=== PATIENT | male | born 1990 | race Caucasian/White ===

== ENCOUNTER 2016-03-03 07:44 | Emergency (ER) | payer BC, OTHER ==
[2016-03-03] MEDS ORDERED: IBUPROFEN 800 MG TAB As Ordered ONE (08:12)
[2016-03-03] MEDS ORDERED: CLINDAMYCIN 150 MG CAP As Ordered ONE (08:12)
--- NOTE | 2016-03-03 08:22 | EDDOCDS ---
Nurse's Notes [facility] Name: Tha Valle Age: 25 yrs Sex: Male : 1990 Arrival Date: 03/03/2016 Time: 07:44 Bed I3 / M3 Private MD: Diagnosis: Local infection of the skin and subcutaneous tissue, unspecified-Right Axilla Presentation: 03/03 07:49 Presenting complaint: Patient states: Abscess to right axilla began a week ago. Adult mlb1 Sepsis Screening: The patient does not have new or worsening altered mentation. Patient's respiratory rate is less than 22. Systolic blood pressure is greater than 100. Patient has a qSOFA score of 0- Negative Sepsis Screen. Suicide/Homicide risk assessment- the patient denies having any suicidal and/or homicidal ideations and does not present with any other emotional, behavioral or mental health complaints. Status: Patient is not a family service aide or dependent. Transition of care: patient was not received from another setting of care. 07:49 Acuity: LI Level 4 mlb1 07:49 Method Of Arrival: Walkin/Carried/Asstd mlb1 Triage Assessment: 07:50 General: Appears in no apparent distress, Behavior is appropriate for age, cooperative. mlb1 Pain: Location: right axilla Pain currently is 10 out of 10 on a pain scale. Pt Declines HIV testing. Historical: - Allergies: no known allergies; - Home Meds: 1. none - PMHx: none; - PSHx: Tonsillectomy; - Social history: Smoking status: Patient states was never smoker of tobacco. No barriers to communication noted, The patient speaks fluent Kyrgyz, Speaks appropriately for age. - Family history: Not pertinent. - : The pt / caregiver states he / she is not on anticoagulants. Home medication list is obtained from the patient. - Exposure Risk Screening:: None identified. Screenin:51 Screening information is obtained from the patient. Fall risk: No risks identified. mlb1 Assistance ADL's: requires no assistance with activities of daily living. Abuse/DV Screen: The patient / caregiver reports he/she is: not in a situation that causes fear, pain or injury. Nutritional screening: No deficits noted. Advance Directives: Currently, there is no health care proxy. home support is adequate. Assessment: 08:18 General: Appears in no apparent distress, Behavior is cooperative. Neurological: Level jc4 of Consciousness is awake, alert, Oriented to person, place, time. Respiratory: Airway is patent Respiratory effort is even, unlabored, Respiratory pattern is regular, symmetrical. Derm: Skin is pink, warm & dry. Vital Signs: 07:51 BP 150 / 87; Pulse 98; Resp 16; Temp 96.6(TE); Pulse Ox 96% on R/A; Weight 104.33 kg mlb1 (R); Height 6 ft. 3 in. (190.50 cm); Pain 10/10; 08:14 BP 136 / 68; Pulse 92; Resp 20; Pulse Ox 98% on R/A; Pain 9/10; jml1 07:51 Body Mass Index 28.75 (104.33 kg, 190.50 cm) [facility] Vitals: 07:51 Log In Time: March 03, 2016 at 07:42. [facility] ED Course: 07:46 Patient visited by Lux Johnson. mm15 07:46 Patient moved to Waiting mm15 07:49 Patient visited by Misael Vidal, RN. mlb1 07:49 Triage Initiated mlb1 07:52 Patient visited by Misael Vidal, RN. mlb1 07:52 Alyx Houston RN is Primary Nurse. mlb1 07:52 Patient moved to I3 / M3 mlb1 07:57 Lisbeth Florian PA-C is PHCP. ef1 07:57 Jeni Gonsalez MD is Attending Physician. ef1 07:57 Patient visited by Lisbeth Florian PA-C. ef1 08:06 [facility] is Referral Physician. ef1 08:15 Patient visited by Carlos Mcgraw. jml1 08:18 The patient / caregiver is instructed regarding the plan of care and ED course. jc4 08:18 No IV's were initiated during this patient's visit. No procedures done that require jc4 assistance. Administered Medications: 08:19 Drug: Clindamycin 300 mg [clindamycin 150 mg capsule (2 caps)] Route: PO; jc4 08:19 Drug: Ibuprofen 800 mg [ibuprofen 800 mg tablet (1 tabs)] Route: PO; jc4 Order Results: There are currently no results for this order. Outcome: 08:06 Discharge ordered by Provider. ef1 08:19 Discharge Assessment: Patient awake, alert and oriented x 3. No cognitive and/or jc4 functional deficits noted. Patient verbalized understanding of disposition instructions. patient administered narcotics - no. The following High Risk Discharge criteria are identified: None. Discharged to home ambulatory. Condition: stable. Discharge instructions given to patient, Instructed on discharge instructions, follow up and referral plans. medication usage, Demonstrated understanding of instructions, medications, Pt was receptive of discharge instructions/ teaching. Prescriptions given X 2. No special radiology studies were completed. Property :Personal belongings accompany Pt. 08:20 Patient left the ED. jc4 Signatures: Misael Vidal, RN RN mlb1 Lisbeth Florian PA-C PA-Xiomara ef1 Alyx Houston, RN RN jc4 Carlos Mcgraw jml1 Lux Johnson mm15 INGRIDD
--- NOTE | 2016-03-03 08:22 | EDDOCDS ---
Physician Documentation [facility] Name: Tha Valle Age: 25 yrs Sex: Male : 1990 Arrival Date: 03/03/2016 Time: 07:44 Bed I3 / M3 Private MD: Disposition: 03/03/16 08:06 Discharged to Home/Self Care. Impression: Local infection of the skin and subcutaneous tissue, unspecified - Right Axilla. - Condition is Stable. - Discharge Instructions: MRSA Infection, Adult. - Prescriptions for Clindamycin HCl 300 mg Oral Capsule - take 1 capsule by ORAL route every 6 hours; 40 capsule. Ibuprofen 800 mg Oral Tablet - take 1 tablet by ORAL route every 8 hours As needed take with food; 30 tablet. - Medication Reconciliation, Local Pharmacy Hours form. - [facility] ; When: 1 - 2 days; Reason: Recheck today's complaints, Continuance of care. Follow up: Emergency Department; Reason: Worsening of conditions. - Problem is new. - Symptoms have improved. Historical: - Allergies: no known allergies; - Home Meds: 1. none - PMHx: none; - PSHx: Tonsillectomy; - Social history: Smoking status: Patient states was never smoker of tobacco. No barriers to communication noted, The patient speaks fluent Swazi, Speaks appropriately for age. - Family history: Not pertinent. - : The pt / caregiver states he / she is not on anticoagulants. Home medication list is obtained from the patient. - Exposure Risk Screening:: None identified. Vital Signs: 03/03 07:51 BP 150 / 87; Pulse 98; Resp 16; Temp 96.6(TE); Pulse Ox 96% on R/A; Weight 104.33 kg / mlb1 230.01 lbs (R); Height 6 ft. 3 in. (190.50 cm); Pain 10/10; 08:14 BP 136 / 68; Pulse 92; Resp 20; Pulse Ox 98% on R/A; Pain 9/10; jml1 07:51 Body Mass Index 28.75 (104.33 kg, 190.50 cm) mlb1 MDM: 08:05 Clindamycin 300 mg PO once ordered. ef1 08:05 Ibuprofen 800 mg PO once ordered. ef1 Administered Medications: 08:19 Drug: Clindamycin 300 mg [clindamycin 150 mg capsule (2 caps)] Route: PO; jc4 08:19 Drug: Ibuprofen 800 mg [ibuprofen 800 mg tablet (1 tabs)] Route: PO; jc4 Signatures: Misael Vidal RN RN mlb1 Lisbeth Florian PAElizabethC PA-C ef1 Alyx Houston RN RN jc4 MTDD
--- NOTE | 2016-03-05 09:20 | EDDOCDS ---
Physician Documentation [facility] Name: Tha Valle Age: 25 yrs Sex: Male : 1990 Arrival Date: 03/03/2016 Time: 07:44 Bed I3 / M3 Private MD: Disposition: 03/03/16 08:06 Discharged to Home/Self Care. Impression: Local infection of the skin and subcutaneous tissue, unspecified - Right Axilla. - Condition is Stable. - Discharge Instructions: MRSA Infection, Adult. - Prescriptions for Clindamycin HCl 300 mg Oral Capsule - take 1 capsule by ORAL route every 6 hours; 40 capsule. Ibuprofen 800 mg Oral Tablet - take 1 tablet by ORAL route every 8 hours As needed take with food; 30 tablet. - Medication Reconciliation, Local Pharmacy Hours form. - [facility]: [facility] ; When: 1 - 2 days; Reason: Recheck today's complaints, Continuance of care. Follow up: Emergency Department; Reason: Worsening of conditions. - Problem is new. - Symptoms have improved. Historical: - Allergies: no known allergies; - Home Meds: 1. none - PMHx: none; - PSHx: Tonsillectomy; - Social history: Smoking status: Patient states was never smoker of tobacco. No barriers to communication noted, The patient speaks fluent Togolese, Speaks appropriately for age. - Family history: Not pertinent. - : The pt / caregiver states he / she is not on anticoagulants. Home medication list is obtained from the patient. - Exposure Risk Screening:: None identified. Vital Signs: 03/03 07:51 BP 150 / 87; Pulse 98; Resp 16; Temp 96.6(TE); Pulse Ox 96% on R/A; Weight 104.33 kg / mlb1 230.01 lbs (R); Height 6 ft. 3 in. (190.50 cm); Pain 10/10; 08:14 BP 136 / 68; Pulse 92; Resp 20; Pulse Ox 98% on R/A; Pain 9/10; jml1 07:51 Body Mass Index 28.75 (104.33 kg, 190.50 cm) mlb1 MDM: 08:05 Clindamycin 300 mg PO once ordered. ef1 08:05 Ibuprofen 800 mg PO once ordered. ef1 08:27 [place] [place] Payment Agreement was scanned into [employer] and attached to record. jp5 08:27 Financial registration complete. jp5 09:39 T-Sheet-- Draft Copy was scanned into [employer] and attached to record. [facility] Administered Medications: 08:19 Drug: Clindamycin 300 mg [clindamycin 150 mg capsule (2 caps)] Route: PO; jc4 08:19 Drug: Ibuprofen 800 mg [ibuprofen 800 mg tablet (1 tabs)] Route: PO; jc4 Signatures: Misael Vidal RN RN mlb1 Lisbeth Florian PA-C PAPaulina ef1 Alyx Houston RN RN jc4 Shawn Singer jp5 Jeni Kirk [facility] The chart was reviewed and I authenticate all verbal orders and agree with the evaluation and treatment provided.Attachments: 08:27 [facility] Payment Agreement jp5 09:39 T-Sheet-- Draft Copy [facility] Chart Complete MTDD
--- NOTE | 2016-03-05 09:20 | EDDOCDS ---
Physician Documentation [facility] Name: Tha Valle Age: 25 yrs Sex: Male : 1990 Arrival Date: 03/03/2016 Time: 07:44 Bed I3 / M3 Private MD: Disposition: 03/03/16 08:06 Discharged to Home/Self Care. Impression: Local infection of the skin and subcutaneous tissue, unspecified - Right Axilla. - Condition is Stable. - Discharge Instructions: MRSA Infection, Adult. - Prescriptions for Clindamycin HCl 300 mg Oral Capsule - take 1 capsule by ORAL route every 6 hours; 40 capsule. Ibuprofen 800 mg Oral Tablet - take 1 tablet by ORAL route every 8 hours As needed take with food; 30 tablet. - Medication Reconciliation, Local Pharmacy Hours form. - [facility] up: [facility] ; When: 1 - 2 days; Reason: Recheck today's complaints, Continuance of care. Follow up: Emergency Department; Reason: Worsening of conditions. - Problem is new. - Symptoms have improved. Historical: - Allergies: no known allergies; - Home Meds: 1. none - PMHx: none; - PSHx: Tonsillectomy; - Social history: Smoking status: Patient states was never smoker of tobacco. No barriers to communication noted, The patient speaks fluent Moroccan, Speaks appropriately for age. - Family history: Not pertinent. - : The pt / caregiver states he / she is not on anticoagulants. Home medication list is obtained from the patient. - Exposure Risk Screening:: None identified. Vital Signs: 03/03 07:51 BP 150 / 87; Pulse 98; Resp 16; Temp 96.6(TE); Pulse Ox 96% on R/A; Weight 104.33 kg / mlb1 230.01 lbs (R); Height 6 ft. 3 in. (190.50 cm); Pain 10/10; 08:14 BP 136 / 68; Pulse 92; Resp 20; Pulse Ox 98% on R/A; Pain 9/10; jml1 07:51 Body Mass Index 28.75 (104.33 kg, 190.50 cm) mlb1 MDM: 08:05 Clindamycin 300 mg PO once ordered. ef1 08:05 Ibuprofen 800 mg PO once ordered. ef1 08:27 [facility] [place] Payment Agreement was scanned into [employer] and attached to record. jp5 08:27 Financial registration complete. jp5 09:39 T-Sheet-- Draft Copy was scanned into [employer] and attached to record. [facility] Administered Medications: 08:19 Drug: Clindamycin 300 mg [clindamycin 150 mg capsule (2 caps)] Route: PO; jc4 08:19 Drug: Ibuprofen 800 mg [ibuprofen 800 mg tablet (1 tabs)] Route: PO; jc4 Signatures: Misael Vidal RN RN mlb1 Lisbeth Florian PA-C PAPaulina ef1 Alyx Houston RN RN jc4 Shawn Singer jp5 Jeni Kirk [facility] The chart was reviewed and I authenticate all verbal orders and agree with the evaluation and treatment provided.Attachments: 08:27 [facility] Payment Agreement jp5 09:39 T-Sheet-- Draft Copy [facility] Chart Complete MTDD
--- NOTE | 2016-03-05 09:20 | EDDOCDS ---
Nurse's Notes [facility] Name: Tha Valle Age: 25 yrs Sex: Male : 1990 Arrival Date: 03/03/2016 Time: 07:44 Bed I3 / M3 Private MD: Diagnosis: Local infection of the skin and subcutaneous tissue, unspecified-Right Axilla Presentation: 03/03 07:49 Presenting complaint: Patient states: Abscess to right axilla began a week ago. Adult mlb1 Sepsis Screening: The patient does not have new or worsening altered mentation. Patient's respiratory rate is less than 22. Systolic blood pressure is greater than 100. Patient has a qSOFA score of 0- Negative Sepsis Screen. Suicide/Homicide risk assessment- the patient denies having any suicidal and/or homicidal ideations and does not present with any other emotional, behavioral or mental health complaints. 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 Transition of care: patient was not received from another setting of care. 07:49 Acuity: LI Level 4 mlb1 07:49 Method Of Arrival: Walkin/Carried/Asstd mlb1 Triage Assessment: 07:50 General: Appears in no apparent distress, Behavior is appropriate for age, cooperative. mlb1 Pain: Location: right axilla Pain currently is 10 out of 10 on a pain scale. Pt Declines HIV testing. Historical: - Allergies: no known allergies; - Home Meds: 1. none - PMHx: none; - PSHx: Tonsillectomy; - Social history: Smoking status: Patient states was never smoker of tobacco. No barriers to communication noted, The patient speaks fluent Hungarian, Speaks appropriately for age. - Family history: Not pertinent. - : The pt / caregiver states he / she is not on anticoagulants. Home medication list is obtained from the patient. - Exposure Risk Screening:: None identified. Screenin:51 Screening information is obtained from the patient. Fall risk: No risks identified. mlb1 Assistance ADL's: requires no assistance with activities of daily living. Abuse/DV Screen: The patient / caregiver reports he/she is: not in a situation that causes fear, pain or injury. Nutritional screening: No deficits noted. Advance Directives: Currently, there is no health care proxy. home support is adequate. Assessment: 08:18 General: Appears in no apparent distress, Behavior is cooperative. Neurological: Level jc4 of Consciousness is awake, alert, Oriented to person, place, time. Respiratory: Airway is patent Respiratory effort is even, unlabored, Respiratory pattern is regular, symmetrical. Derm: Skin is pink, warm & dry. Vital Signs: 07:51 BP 150 / 87; Pulse 98; Resp 16; Temp 96.6(TE); Pulse Ox 96% on R/A; Weight 104.33 kg mlb1 (R); Height 6 ft. 3 in. (190.50 cm); Pain 10/10; 08:14 BP 136 / 68; Pulse 92; Resp 20; Pulse Ox 98% on R/A; Pain 9/10; jml1 07:51 Body Mass Index 28.75 (104.33 kg, 190.50 cm) [facility] Vitals: 07:51 Log In Time: March 03, 2016 at 07:42. [facility] ED Course: 07:46 Patient visited by Lux Johnson. mm15 07:46 Patient moved to Waiting mm15 07:49 Patient visited by Misael Vidal, RN. mlb1 07:49 Triage Initiated mlb1 07:52 Patient visited by Misael Vidal, RN. mlb1 07:52 Alyx Houston, HANNAH is Primary Nurse. mlb1 07:52 Patient moved to I3 / mlb1 07:57 Lisbeth Florian PA-C is PHCP. ef1 07:57 Jeni Gonsalez MD is Attending Physician. ef1 07:57 Patient visited by Lisbeth Florian PA-C. ef1 08:06 [facility] is Referral Physician. ef1 08:15 Patient visited by Carlos Mcgraw. jml1 08:18 The patient / caregiver is instructed regarding the plan of care and ED course. jc4 08:18 No IV's were initiated during this patient's visit. No procedures done that require jc4 assistance. 08:27 [place] [place] Payment Agreement was scanned into [employer] and attached to record. jp5 09:39 T-Sheet-- Draft Copy was scanned into [employer] and attached to record. [facility] Administered Medications: 08:19 Drug: Clindamycin 300 mg [clindamycin 150 mg capsule (2 caps)] Route: PO; jc4 08:19 Drug: Ibuprofen 800 mg [ibuprofen 800 mg tablet (1 tabs)] Route: PO; jc4 Order Results: There are currently no results for this order. Outcome: 08:06 Discharge ordered by Provider. ef1 08:19 Discharge Assessment: Patient awake, alert and oriented x 3. No cognitive and/or jc4 functional deficits noted. Patient verbalized understanding of disposition instructions. patient administered narcotics - no. The following High Risk Discharge criteria are identified: None. Discharged to home ambulatory. Condition: stable. Discharge instructions given to patient, Instructed on discharge instructions, follow up and referral plans. medication usage, Demonstrated understanding of instructions, medications, Pt was receptive of discharge instructions/ teaching. Prescriptions given X 2. No special radiology studies were completed. Property :Personal belongings accompany Pt. 08:20 Patient left the ED. jc4 Signatures: Misael Vidal, RN RN mlb1 Lisbeth Florian PA-C PA-C ef1 Alyx Houston RN RN jc4 Carlos Mcgrawl1 Lux Johnson 15 Shawn Singer jp5 Jeni Kirk Chart Complete [facility]
== END 2016-03-03 08:20 | disposition home or self-care (01) ==
LOC: M ED 07:44
DX: L08.9 Local infection of the skin and subcutaneous tissue, unspecified (principal)